=== PATIENT | female | born 1960 | race Caucasian/White ===

== ENCOUNTER → 2017-06-12 | Outpatient (CLI) | payer SELFPAY ==
--- NOTE | 2017-06-12 10:47 | DI ---
XR SHOULDER MIN 2VW,06/12/2017 9:55 AM: Clinical History: Acute left shoulder pain Previous Exam: None at this facility. Findings: 3 views of the left shoulder are obtained, and demonstrate calcific tendinitis of the superior rotato r cuff. There is also a small bony density adjacent to the glenoid which appears to represent a small avulsio n fracture. This is not well evaluated on this exam, but involves the posterior glenoid. The adjacent left lung and chest wall are unremarkable. Impression: 1. Calcific tendinitis of the rotator cuff. 2. Small avulsion fracture involving the posterior margin of the glenoid. Recommend MRI of the left s [facility] [place] for further evaluation.
--- NOTE | 2017-06-12 12:01 | DI ---
LUMBAR, THORACIC AND CERVICAL MYELOGRAM, 06/12/2017 10:39 AM: Clinical History: Lumbar, cervical and thoracic back pain. Previous Exam: None at this facility. Informed signed consent was obtained prior to the procedure. The patient was informed of benefits and risks, to include but not be limited, to allergies to medications (skin preparation agents, local an esthetic, and contrast agent), infection, and "spinal" headaches. The lower back was prepped with an alcohol solution. 1% lidocaine without epinephrine was used for i ntradermal and subcutaneous local anesthesia. Under fluoroscopic guidance, a 22 gauge spinal needle was then introduced into the spinal canal from the left paraspinal approach at the level of L4. A single pass was performed and this revealed drople ts of clear colorless CSF. 12 mL of Omipaque 300 was injected into the spinal canal with fluoroscopic monitoring. Spot films of the lumbar spine were obtained followed by a cross table lumbar spine view. The patient tolerated the procedure well and was transferred to the CT scan suite for the CT myelogram. 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 The patient was also instructed to push fluids for the remainder of the day and to sle ep on an extra pillow with the head up if possible. The patient was advised to watch for signs of an infection (including but not limited to redness, swelling, fever) or an unusually severe headache. Th e patient was instructed to either contact the x-ray department directly or to report to the Emergenc y Room immediately if problems arose. Findings: Multiple images obtained during the exam demonstrate a thecal sac with good contrast enhancement to t he level of the cervical spine. Reading: Successful myelogram.
--- NOTE | 2017-06-12 12:08 | DI ---
CT CERVICAL SPINE W/CONTRAST,06/12/2017 10:38 AM: Clinical History: Neck pain. Previous Exam: None at this facility. Findings: Multiple helically acquired CT images are obtained through the cervical spine following intrathecal a dministration of contrast. Postsurgical changes are seen consistent with anterior screw and plate fixation of C2-C4 with interbo dy fusion of C2-C7. There is also bony fusion of the transverse processes throughout the cervical spine with posterior sc rew and marion fixation of C2-C4. The spinal cord descends normally with normal course and caliber. The visualized portions of the skull base are unremarkable. Alignment is near-anatomic. There is good bony fusion of the interbody fusion of C4/5, C5/6 and C6/7, but there is very little bony fusion of the interbody fusion of C2/3 and C3/4. Visualized portions of the thyroid are unremarkable. Individual intervertebral disc spaces: C2/C3: Postsurgical changes as above without significant stenosis. C3/4: No significant stenosis. C4/5: No significant stenosis. C5/6: There are some uncovertebral joint osteophytes without significant stenosis. C6/7: No significant stenosis. C7/T1: No significant stenosis. Impression: Postsurgical changes and degenerative changes as above without significant stenosis.
--- NOTE | 2017-06-12 12:18 | DI ---
CT THORACIC SPINE W/CONTRAST,06/12/2017 10:38 AM: Clinical History: Back pain Previous Exam: MRI lumbar spine performed November 29, 2006 Findings: Multiple helically acquired CT images are obtained through the thoracic spine following the intrathec al administration of contrast. Bony alignment is anatomic. No fractures are seen. Vertebral body height is preserved. Intervertebral disc height is also preserved. There is no significant disc disease and no significant central canal nor neural foraminal narrowing. The spinal cord descends normally with normal course and caliber and a normal conus at the L1 level. Impression: Normal thoracic spine. No evidence of significant stenosis.
--- NOTE | 2017-06-12 12:22 | DI ---
CT LUMBAR SPINE W/CONTRAST,06/12/2017 10:38 AM: Clinical History: Back pain Previous Exam: MRI lumbar spine performed November 29, 2006 Findings: Multiple helically acquired CT images are obtained through the lumbar spine following intrathecal adm inistration of contrast, and demonstrate anatomic alignment without fractures. Vertebral body height is preserved. There is some endplate sclerosis involving the inferior endplate of the second lumbar v ertebral body. There is also some mild sclerosis involving the inferior endplate of the first lumbar vertebral body. Visualized portions of the distal conus are normal. Individual intervertebral disc spaces: L1/2: No significant stenosis. L2/C3: No significant stenosis. L3/4: No significant stenosis. L4/5: There is significant facet arthropathy. Postsurgical changes are also noted consistent with par tial laminectomies. There is also lateral bony fusion and transpedicular fixation as well as interbod y fusion with no significant mineralization at this time. There is only mild bilateral neural foraminal narrowing. L5/S1: There is again noted are transpedicular fusion and bony transverse fusion at this level. There is a very small broad-based disc bulge measuring approximately 3 mm. With facet hypertrophy and a br oad-based disc bulge combining to cause very mild bilateral neural foraminal narrowing. Impression: L4/5: There is significant facet arthropathy. Postsurgical changes are also noted consistent with par tial laminectomies. There is also lateral bony fusion and transpedicular fixation as well as interbod y fusion with no significant mineralization at this time. There is only mild bilateral neural foraminal narrowing. L5/S1: There is again noted are transpedicular fusion and bony transverse fusion at this level. There is a very small broad-based disc bulge measuring approximately 3 mm. With facet hypertrophy and a br oad-based disc bulge combining to cause very mild bilateral neural foraminal narrowing.
== END ==
LOC: RAD 10:37
PROVIDERS: ATTEND Neurological Surgery
DX: M25.512 Pain in left shoulder (principal); S42.145A Nondisplaced fracture of glenoid cavity of scapula, left shoulder, initial encounter for closed fracture; M75.32 Calcific tendinitis of left shoulder; M54.5 Low back pain; M54.6 Pain in thoracic spine; M54.2 Cervicalgia; Z98.1 Arthrodesis status
CPT/HCPCS: 72126; 72129; 72132; 72240; 72255; 72265; 73030